=== PATIENT | female | born 1930 | race Caucasian/White ===

== ENCOUNTER 2016-11-25 12:27 | Outpatient (CLI) | payer OTHER, BC ==
--- NOTE | 2016-11-27 16:33 | DIAGNOSTIC IMAGING REPORT ---
REFERRING PHYSICIAN/PROVIDER: Akilah Morgan MD CONSULTING IMAGE SCIENTIST: Luis Lal MD PROCEDURE: M-mode 2D echocardiography with spectral and color flow Doppler TECHNICAL QUALITY: The study quality was technically adequate. INDICATION: SLOW PULSE RHYTHM DURING PROCEDURE: The patient was in normal sinus rhythm during the exam. INTERPRETATIONS: LEFT VENTRICLE: The left ventricle is normal in size, wall thickness, and systolic function without any focal wall motion abnormalities. There is no ventricular septal defect visualized. The ejection fraction is estimated to be 60-65%. Assessment of diastolic parameters indicates normal left ventricular diastolic function and normal filling pressures. RIGHT VENTRICLE: The right ventricle is normal in size and function. ATRIA: The left atrium is mildly dilated. The right atrium is normal in size. The interatrial septum is intact with no evidence for an atrial septal defect. MITRAL VALVE: The mitral leaflets appear borderline thickened, but open well. There is mild mitral annular calcification. There is trace mitral regurgitation. AORTIC VALVE: The aortic valve is trileaflet. Aortic valve opens well. There is no aortic regurgitation. TRICUSPID VALVE: The tricuspid valve leaflets are thin and pliable. There is mild tricuspid regurgitation. Right ventricular systolic pressure is estimated at 36 mmHg assuming a right atrial pressure of 3 mmHg. PULMONIC VALVE: The pulmonic valve is not well visualized. There is mild pulmonic regurgitation. GREAT VESSELS: The aorta root is normal size. The ascending aorta cannot be visualized. The IVC is of normal diameter and collapses greater than 50% the sniff. This suggest a low right atrial pressure of 3 mmHg. PERICARDIUM: There is no pericardial fusion. IMPRESSION: 1. There is normal LV and RV systolic function. 2. Left atrium is mildly dilated and the right atrium is normal in size. 3. There is no evidence of significant valvular abnormalities.
== END 2016-11-25 23:00 ==
LOC: US SRH 12:27
DX: I49.9 Cardiac arrhythmia, unspecified (principal)